=== PATIENT | male | born 1960 | race Caucasian/White ===

== ENCOUNTER → 2016-11-19 | Outpatient (CLI) | payer OTHER | LOC: LAB 11:31 | DX: J30.2 Other seasonal allergic rhinitis (principal); H66.92 Otitis media, unspecified, left ear; H66.91 Otitis media, unspecified, right ear; R39.15 Urgency of urination ==

== ENCOUNTER → 2017-08-25 | Outpatient (CLI) | payer OTHER ==
[2015-04-27 15:38] VITALS: BP 123/74
== END ==
LOC: RAD 11:12
DX: M25.571 Pain in right ankle and joints of right foot (principal); R60.0 Localized edema